=== PATIENT | female | born 1970 | race African-American/Black ===

== ENCOUNTER 2019-11-08 10:27 | Emergency (ER) | payer MEDICAID ==
[~2019-11-08] VITALS: Ht 162.6 cm; Wt 98.2 kg
[2019-11-08 11:18] LABS: BASOPHILS # (AUTO) 0.03 x10^3/uL (0-0.1); BASOPHILS % (AUTO) 1 % (0-1); EOSINOPHILS # (AUTO) 0.09 x10^3/uL (0-0.4); EOSINOPHILS % (AUTO) 2 % (1-7); LYMPHOCYTES # (AUTO) 1.31 x10^3/uL (1-3.4); LYMPHOCYTES % (AUTO) 26 % (22-44); MD NO; MEAN CORPUSCULAR HEMOGLOBIN 34.1 pg (27.0-34.8); MEAN CORPUSCULAR HGB CONC 33.3 g/dL (32.4-35.8); MEAN CORPUSCULAR VOLUME 102.6 fL (80-100); MEAN PLATELET VOLUME 8.5 fL (7.4-10.4); MONOCYTES # (AUTO) 0.34 x10^3/uL (0.2-0.8); MONOCYTES % (AUTO) 7 % (2-9); NEUTROPHILS # (AUTO) 3.21 x10^3/uL (1.8-6.8); NEUTROPHILS % (AUTO) 65 % (42-75); PLATELET COUNT 184 x10^3/uL (130-400); RED BLOOD COUNT 3.94 x10^6/uL (3.82-5.3); RED CELL DISTRIBUTION WIDTH 12.8 % (9.6-15.2)
[2019-11-08 11:28] LABS: ALBUMIN 3.3 g/dL (3.4-5.0); ANION GAP 4 mmol/L (5-15); CALCIUM 9.8 mg/dL (8.5-10.1); CHLORIDE 111 mmol/L (98-107)
[2019-11-08 11:29] LABS: CREATININE 1.15 mg/dL (0.55-1.02)
[2019-11-08 12:44] VITALS: BP 218/120
[2019-11-08] MEDS ORDERED: hydrALAzine 20 MG/ML, 1ML ONE (12:59)
[2019-11-08] MEDS ORDERED: hydrALAzine 20 MG/ML, 1ML IV ONE (13:00)
== END 2019-11-08 13:07 | disposition home or self-care (01) ==
LOC: ED 10:55
DX: I10 Essential (primary) hypertension (principal); R09.89 Other specified symptoms and signs involving the circulatory and respiratory systems; R94.31 Abnormal electrocardiogram [ECG] [EKG]
CPT/HCPCS: 36415; 71046; 80048; 82040; 85025; 93005; 99285

== ENCOUNTER 2020-07-07 17:58 | Emergency (ER) | payer MEDICAID ==
[~2020-07-07] VITALS: Ht 162.6 cm; Wt 85.5 kg
[2020-07-07 20:17] LABS: BASOPHILS % (AUTO) 1 % (0-1); EOSINOPHILS % (AUTO) 2 % (1-7); LYMPHOCYTES % (AUTO) 30 % (22-44); MEAN CORPUSCULAR HEMOGLOBIN 36.7 pg (27.0-34.8); MEAN CORPUSCULAR HGB CONC 33.4 g/dL (32.4-35.8); MEAN PLATELET VOLUME 9.3 fL (7.4-10.4); MONOCYTES % (AUTO) 11 % (2-9); NEUTROPHILS % (AUTO) 56 % (42-75); PLATELET COUNT 157 x10^3/uL (130-400); RED BLOOD COUNT 3.75 x10^6/uL (3.82-5.3); RED CELL DISTRIBUTION WIDTH 13.5 % (9.6-15.2)
[2020-07-07 20:19] LABS: ALANINE AMINOTRANSFERASE 63 U/L (12-78); ALBUMIN 3.3 g/dL (3.4-5.0); ANION GAP 6 mmol/L (5-15); CALCIUM 9.4 mg/dL (8.5-10.1); CHLORIDE 113 mmol/L (98-107); CREATININE 0.93 mg/dL (0.55-1.02); MD NO
[2020-07-07 20:21] LABS: ALKALINE PHOSPHATASE 86 U/L (45-117); BILIRUBIN,TOTAL 0.9 mg/dL (0.2-1.0); TOTAL PROTEIN 6.8 g/dL (6.4-8.2)
--- NOTE | 2020-07-07 21:05 | NUR ---
Pt seen at urgent care yesterday. Was told to f/u today for HTN. Pt to ER with c/o of HTN. Pt denies any symptoms from HTN. Pt on monitor, medicated per order for HTN. PO fluids given and UA encouraged. Pt calm in bed, no changes, remains HTN. Physician aware. Pt remains asytomatic. Pt denies any needs at this time. Will monitor. Call light in reach.
[2020-07-07 22:15] VITALS: BP 186/110
== END 2020-07-07 22:17 | disposition home or self-care (01) ==
LOC: ED 21:14
DX: I10 Essential (primary) hypertension (principal); R07.89 Other chest pain; R94.31 Abnormal electrocardiogram [ECG] [EKG]; F17.200 Nicotine dependence, unspecified, uncomplicated
CPT/HCPCS: 36415; 71045; 80053; 85025; 93005; 99285